=== PATIENT | female | born 1945 | race Caucasian/White ===

== ENCOUNTER → 2016-07-22 | Outpatient (CLI) | payer MEDICARE, OTHER | LOC: M LAB 14:21 | PROVIDERS: ATTEND Internal Medicine Gastroenterology | DX: K58.0 Irritable bowel syndrome with diarrhea (principal) ==

== ENCOUNTER → 2016-07-24 | Outpatient (REF) | payer OTHER | LOC: M LAB REF 11:31 | PROVIDERS: ATTEND Internal Medicine Gastroenterology | DX: K58.0 Irritable bowel syndrome with diarrhea (principal) ==

== ENCOUNTER → 2016-08-17 | Outpatient (CLI) | payer OTHER ==
[~2016-08-17] VITALS: Ht 152.4 cm; Wt 81.2 kg
[~2016-08-17] MED LIST: ALIG4CAP PO; ASPI1TAB24 PO; CALC625T PO; CRAN200C PO; DICY10CA13 PO; FIBEPOW PO; GING550C PO; LACT3000 PO; LEVO88TA3 PO; LISI10TA4 PO; LORA10TA2 PO; LOTE0.5S OD; MULT1TAB10 PO; NS 1,000 ML IV SCH; OYSCTAB3 PO; POTA99TA PO; PROPOFOL 200 MG/20 ML VIAL As Ordered ONE; RANI1TAB6 PO; TIMO25OPD OD; TURM500C3 PO; VITA200016 PO
--- NOTE | 2016-08-17 08:40 | ROOR ---
Patient Name: Sanjuana Leyva Procedure Date: 08/17/2016 8:14 AM Date of : 1945 Age: 71 Room: [facility] Gender: Female Note Status: Finalized Procedure: Colonoscopy Indications: Change in bowel habits Providers: Supa HORNER MD Referring MD: LIONEL WANG DO Requesting Provider: Medicines: Monitored Anesthesia Care Complications: No immediate complications. Procedure: Pre-Anesthesia Assessment: - The heart rate, respiratory rate, oxygen saturations, blood pressure, adequacy of pulmonary ventilation, and response to care were monitored throughout the procedure. The Colonoscope was introduced through the anus and advanced to 5 cm into the ileum. The colonoscopy was performed without difficulty. The patient tolerated the procedure well. The quality of the bowel preparation was good and fair. Findings: The perianal and digital rectal examinations were normal. (EXAM: Complete, PREP:Adequate) Multiple medium-mouthed diverticula were found in the sigmoid colon. Small Internal Hemorrhoids. The exam was otherwise without abnormality on direct and retroflexion views. Biopsies for histology were taken with a cold forceps for evaluation of microscopic colitis. The terminal ileum appeared normal. Impression: - Preparation of the colon was fair. - The examined portion of the ileum was normal. - The colon was normal except for moderate diverticulosis in the sigmoid colon. - Small Internal Hemorrhoids. - Biopsies were taken with a cold forceps for evaluation of microscopic colitis. Recommendation: - Use fiber, for example Citrucel, Fibercon, Konsyl or Metamucil. - Telephone endoscopist for pathology results in 2 weeks. Supa Horner MD Supa HORNER MD 08/17/2016 8:40:14 AM This report has been signed electronically. Number of Addenda: 0 Note Initiated On: 08/17/2016 8:14 AM Estimated Blood Loss: Estimated blood loss: none.
[2016-08-17 09:00] VITALS: BP 129/67
== END | disposition home or self-care (01) ==
LOC: M OPP 07:19
PROVIDERS: ATTEND Internal Medicine Gastroenterology
DX: R19.4 Change in bowel habit (principal); K57.30 Diverticulosis of large intestine without perforation or abscess without bleeding; K64.8 Other hemorrhoids; I10 Essential (primary) hypertension; E78.5 Hyperlipidemia, unspecified; E03.9 Hypothyroidism, unspecified; R12 Heartburn; R23.3 Spontaneous ecchymoses; M19.90 Unspecified osteoarthritis, unspecified site; R06.02 Shortness of breath; Z78.0 Asymptomatic menopausal state; G47.30 Sleep apnea, unspecified; K21.9 Gastro-esophageal reflux disease without esophagitis; R06.83 Snoring; H35.81 Retinal edema; Z86.79 Personal history of other diseases of the circulatory system; Z88.5 Allergy status to narcotic agent; Z88.8 Allergy status to other drugs, medicaments and biological substances; Z91.011 Allergy to milk products; Z88.0 Allergy status to penicillin; Z88.3 Allergy status to other anti-infective agents; Z79.82 Long term (current) use of aspirin; Z79.899 Other long term (current) drug therapy; Z80.7 Family history of other malignant neoplasms of lymphoid, hematopoietic and related tissues